=== PATIENT | female | born 1980 | race Asian ===

== ENCOUNTER 2018-06-29 17:17 | Outpatient (CLI) | payer BC, OTHER ==
[~2018-06-29] VITALS: Ht 170.2 cm; Wt 90.0 kg
[2018-06-29 17:25] VITALS: BP 107/64
[2018-06-29] MEDS ORDERED: progesterone VG (17:47)
[2018-06-29] MEDS ORDERED: PREN1TAB60 PO (17:47)
[2018-06-29] MEDS ORDERED: LEVO100T PO (17:47)
[2018-06-29] MEDS ORDERED: iron (17:47)
[2018-06-29 18:19] LABS: MICROSCOPIC NOT IND
[2018-06-29 19:18] LABS: CREATININE,URINE RANDOM 53.3 mg/dL
== END 2018-06-29 20:46 | disposition home or self-care (01) ==
LOC: LDOP 17:17
PROVIDERS: ATTEND Obstetrics & Gynecology
DX: O09.513 Supervision of elderly primigravida, third trimester (principal); O26.893 Other specified pregnancy related conditions, third trimester; Z3A.49 Greater than 42 weeks gestation of pregnancy
CPT/HCPCS: 59025; 81003; 82570; 84156; 87086; 99211; G0463

== ENCOUNTER 2018-07-06 15:04 | Outpatient (CLI) | payer BC, OTHER ==
[~2018-07-06] VITALS: Ht 170.2 cm; Wt 92.7 kg
[~2018-07-06 15:04] MED LIST: LEVO100T PO; PREN1TAB60 PO; iron; progesterone VG
[2018-07-06 15:12] VITALS: BP 115/64
== END 2018-07-06 16:15 | disposition home or self-care (01) ==
LOC: LDOP 15:04
PROVIDERS: ATTEND Obstetrics & Gynecology
DX: O36.8130 Decreased fetal movements, third trimester, not applicable or unspecified (principal); O09.523 Supervision of elderly multigravida, third trimester; Z3A.34 34 weeks gestation of pregnancy
CPT/HCPCS: 59025; 76819; 99211; G0463

== ENCOUNTER 2018-08-02 22:27 | Outpatient (CLI) | payer BC, OTHER ==
[~2018-08-02] VITALS: Ht 170.2 cm; Wt 92.0 kg
== END 2018-08-02 23:06 | disposition home or self-care (01) ==
LOC: LDOP 22:27
PROVIDERS: ATTEND Obstetrics & Gynecology
DX: O36.8130 Decreased fetal movements, third trimester, not applicable or unspecified (principal); Z3A.38 38 weeks gestation of pregnancy
CPT/HCPCS: 59025; 99211; G0463

== ENCOUNTER 2018-08-06 05:16 | Inpatient (IN) | payer BC, OTHER ==
[~2018-08-06] VITALS: Ht 170.2 cm; Wt 92.0 kg
[2018-08-06] MEDS ORDERED: LACTATED RINGERS 1,000 ML IV SCH (06:44)
[2018-08-06] MEDS ORDERED: D5%-LACTATED RINGERS 1,000 ML IV SCH (06:44)
[2018-08-06] MEDS ORDERED: OXYTOCIN 30U/ 0.9% NaCL 500ML 500 ML IV PRN (06:44)
[2018-08-06] MEDS ORDERED: OXYTOCIN 30U/ 0.9% NaCL 500ML 500 ML IV ONE (06:44)
[2018-08-06] MEDS ORDERED: FENTANYL PF 100 MCG/2ML IV PRN (07:00)
[2018-08-06] MEDS ORDERED: FENTANYL PF 100 MCG/2ML IVPush PRN (07:00)
[2018-08-06] MEDS ORDERED: METOCLOPRAMIDE 5 MG/ML, 2ML IVPush PRN (07:00)
[2018-08-06] MEDS ORDERED: SODIUM CITRATE/CITRIC ACID 15 ML UDC PO PRN (07:00)
[2018-08-06] MEDS ORDERED: NEWBORN KIT ONE (07:11)
[2018-08-06] MEDS ORDERED: LIDOCAINE 1%, 20ML ONE (07:11)
[2018-08-06] MEDS ORDERED: OXYTOCIN 30U/ 0.9% NaCL 500ML 500 ML ONE ×2 (07:12→14:11)
[2018-08-06] MEDS ORDERED: MISOPROSTOL 200 MCG TABLET ONE (07:12)
[2018-08-06 07:28] LABS: BASOPHILS # (AUTO) 0.01 x10^3/uL (0-0.1); BASOPHILS % (AUTO) 0 % (0-1); EOSINOPHILS # (AUTO) 0.16 x10^3/uL (0-0.4); EOSINOPHILS % (AUTO) 2 % (1-7); LYMPHOCYTES # (AUTO) 1.47 x10^3/uL (1-3.4); LYMPHOCYTES % (AUTO) 22 % (22-44); MD NO; MEAN CORPUSCULAR HEMOGLOBIN 27.9 pg (27.0-34.8); MEAN CORPUSCULAR HGB CONC 32.6 g/dL (32.4-35.8); MEAN CORPUSCULAR VOLUME 85.4 fL (80-100); MEAN PLATELET VOLUME 10.6 fL (7.4-10.4); MONOCYTES # (AUTO) 0.46 x10^3/uL (0.2-0.8); MONOCYTES % (AUTO) 7 % (2-9); NEUTROPHILS % (AUTO) 69 % (42-75); PLATELET COUNT 195 x10^3/uL (130-400); RED BLOOD COUNT 3.93 x10^6/uL (3.82-5.3); RED CELL DISTRIBUTION WIDTH 14.6 % (9.6-15.2)
[2018-08-06] MEDS ORDERED: FENTANYL PF 100 MCG/2ML ONE (10:42)
[2018-08-06] MEDS: OXYTOCIN 30U/ 0.9% NaCL 500ML 500 ML IV SCH ×2 (13:41→23:41)
[2018-08-06 13:45] VITALS: BP 111/72
[2018-08-06] MEDS ORDERED: CARBOPROST TROMETHAMINE 250 MCG/ML, 1ML IM PRN (14:00)
[2018-08-06] MEDS ORDERED: MISOPROSTOL 200 MCG TABLET PR PRN (14:00)
[2018-08-06] MEDS ORDERED: OXYcodone/APAP 5/325MG TABLET PO PRN ×2 (14:00)
[2018-08-06] MEDS ORDERED: METHYLERGONOVINE 0.2 MG/ML IM PRN (14:00)
[2018-08-06] MEDS ORDERED: IBUPROFEN 600 MG TABLET ONE (14:11)
[2018-08-06] MEDS: IBUPROFEN 600 MG TABLET PO PRN ×2 (14:38→21:25)
[2018-08-06 15:45] VITALS: BP 111/72
[2018-08-06 19:40] VITALS: BP 105/67
[2018-08-06 20:57] LABS: BASOPHILS # (AUTO) 0.01 x10^3/uL (0-0.1); BASOPHILS % (AUTO) 0 % (0-1); EOSINOPHILS # (AUTO) 0.03 x10^3/uL (0-0.4); EOSINOPHILS % (AUTO) 0 % (1-7); LYMPHOCYTES # (AUTO) 1.25 x10^3/uL (1-3.4); LYMPHOCYTES % (AUTO) 10 % (22-44); MD NO; MEAN CORPUSCULAR HEMOGLOBIN 28.6 pg (27.0-34.8); MEAN CORPUSCULAR HGB CONC 32.8 g/dL (32.4-35.8); MEAN PLATELET VOLUME 10.5 fL (7.4-10.4); MONOCYTES # (AUTO) 0.49 x10^3/uL (0.2-0.8); MONOCYTES % (AUTO) 4 % (2-9); NEUTROPHILS # (AUTO) 10.94 x10^3/uL (1.8-6.8); NEUTROPHILS % (AUTO) 86 % (42-75); PLATELET COUNT 198 x10^3/uL (130-400); RED BLOOD COUNT 4.06 x10^6/uL (3.82-5.3); RED CELL DISTRIBUTION WIDTH 14.2 % (9.6-15.2)
[2018-08-06] MEDS: DOCUSATE 100 MG CAPSULE PO PRN (21:25)
[2018-08-06 23:50] VITALS: BP 103/63
[2018-08-07] MEDS: IBUPROFEN 600 MG TABLET PO PRN ×4 (03:37→22:12)
[2018-08-07 03:45] VITALS: BP 115/75
[2018-08-07 07:20] VITALS: BP 108/71
[2018-08-07] MEDS: OXYTOCIN 30U/ 0.9% NaCL 500ML 500 ML IV SCH ×2 (09:41→19:41)
[2018-08-07] MEDS: DOCUSATE 100 MG CAPSULE PO PRN ×2 (09:56→22:13)
[2018-08-07] MEDS: PRENATAL VIT/IRON/FA 1 EACH TABLET PO SCH (09:56)
[2018-08-07] MEDS ORDERED: IBUP-1222 PO (10:19)
[2018-08-07] MEDS ORDERED: OXYC-302 PO (10:21)
[2018-08-07] MEDS ORDERED: DIPH,PERTUSS(ACELL),TET VAC/PF NC IM-VACC ONE ×2 (16:54→17:30)
[2018-08-07 19:30] VITALS: BP 107/73
[2018-08-08] MEDS: IBUPROFEN 600 MG TABLET PO PRN (05:39)
[2018-08-08] MEDS: OXYTOCIN 30U/ 0.9% NaCL 500ML 500 ML IV SCH (05:41)
[2018-08-08 08:00] VITALS: BP 139/82
[2018-08-08] MEDS: PRENATAL VIT/IRON/FA 1 EACH TABLET PO SCH (08:57)
[2018-08-08] MEDS: DOCUSATE 100 MG CAPSULE PO PRN (08:58)
== END 2018-08-08 11:45 | disposition home or self-care (01) | DRG 807 ==
LOC: LDOP 05:16 → LDIP 06:36 → 2NW 14:50
PROVIDERS: ADMIT Obstetrics & Gynecology; ATTEND Obstetrics & Gynecology
PROC: 10E0XZZ Delivery of Products of Conception, External Approach (ICD-10-PCS; principal; 2018-08-06)
DX: O99.284 Endocrine, nutritional and metabolic diseases complicating childbirth (principal); Z37.0 Single live birth; Z3A.39 39 weeks gestation of pregnancy; E03.9 Hypothyroidism, unspecified
CPT/HCPCS: 36415; 85025; 86850; 86900; 89060; 90715; G0378; J3010; J2590; Q0114